=== PATIENT | male | born 1995 | race Caucasian/White ===

== ENCOUNTER 2022-12-26 17:16 | Emergency (ER) | payer BC, SELFPAY ==
[2022-12-26 17:22] VITALS: BP 160/68; PULSE 84; RESP 16; TEMP 36.7; O2SAT 97; BMI 43.6
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
--- NOTE | 2022-12-26 17:35 | XRR_ITS ---
PROCEDURE INFORMATION: Exam: XR Left Foot Exam date and time: 12/26/2022 5:44 PM Age: 27 years old Clinical indication: Pain; Toes; Left; Additional info: Trauma/pain/swelling TECHNIQUE: Imaging protocol: Radiologic exam of the left foot. Views: 3 or more views. COMPARISON: No relevant prior studies available. FINDINGS: Bones/joints: No dislocation. Normal bone mineralization. No joint effusion. Joint spaces are maintained. 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 Comminuted, mildly displaced fracture of the first proximal phalanx on the left foot, the fracture extends from the proximal metaphysis to the mid diaphysis. Mild impaction with lateral angulation of the distal fracture fragment. Soft tissues: Moderate soft tissue swelling at the left 1st toe. No radiopaque foreign body. XR/XR foot LT min 3V* [id number] IMPRESSION: 1. Comminuted, mildly displaced fracture of the first proximal phalanx on the left foot, the fracture extends from the proximal metaphysis to the mid diaphysis. Mild impaction with lateral angulation of the distal fracture fragment. 2. Moderate soft tissue swelling at the left 1st toe.
--- NOTE | 2022-12-26 17:35 | XRR_ITS ---
PROCEDURE INFORMATION: Exam: XR Left Ankle Exam date and time: 12/26/2022 5:44 PM Age: 27 years old Clinical indication: Pain; Toes; Left; Additional info: Trauma/pain/swelling TECHNIQUE: Imaging protocol: Radiologic exam of the left ankle. Views: 3 or more views. COMPARISON: No relevant prior studies available. FINDINGS: Bones/joints: No acute fracture. No dislocation. Normal bone mineralization. No joint effusion. Joint spaces are maintained. Ankle mortise is symmetric. 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 Soft tissues: No soft tissue swelling. No radiopaque foreign body. XR/XR ankle LT min 3V* [id number] IMPRESSION: 1. No acute fracture of the left ankle. Followup imaging recommended in 7-14 days if clinical concern for fracture persists. 2. Incidental/nonacute findings are listed in the report.
--- NOTE | 2022-12-28 05:56 | DCPLANNER ---
channel marketing manager had message to schedule a follow up appointment for patient with ortho. In physicians notes, it states that patient does not live in the area. According to the physicians notes, patient is going to follow up with his physician when he gets home.
== END 2022-12-26 18:41 | disposition home or self-care (01) ==
PROVIDERS: Emergency Provider Physician Assistant
DX: S92.412A Displaced fracture of proximal phalanx of left great toe, initial encounter for closed fracture (principal); V86.99XA Unspecified occupant of other special all-terrain or other off-road motor vehicle injured in nontraffic accident, initial encounter; Y93.I9 Activity, other involving external motion; Y92.009 Unspecified place in unspecified non-institutional (private) residence as the place of occurrence of the external cause
CPT/HCPCS: 73610; 73630; 99283